=== PATIENT | female | born 1960 | race Asian ===

== ENCOUNTER 2019-05-06 09:31 | Day surgery (SDC) | payer OTHER ==
[2019-05-06] MEDS ORDERED: CEFAZOLIN 1 GM/50 ML (PMX) 50 ML IVPB (10:00)
[2019-05-06] MEDS ORDERED: SOD CHLORIDE 0.9% 1,000 ML IV (10:00)
[2019-05-06] MEDS ORDERED: PROPOFOL 20 ML (11:00)
[2019-05-06] MEDS ORDERED: LIDOCAINE 100 MG SYRINGE (11:00)
[2019-05-06] MEDS ORDERED: MIDAZOLAM 1 MG/ML 2 ML INJ (11:00)
[2019-05-06] MEDS ORDERED: FENTAnyl 50 MCG/ML VIAL (11:00)
[2019-05-06] MEDS ORDERED: ROCURONIUM 50 MG INJ (11:00)
[2019-05-06] MEDS ORDERED: ONDANSETRON 4 MG INJ (11:03)
[2019-05-06] MEDS ORDERED: PHENYLephrine 10 MG INJ (11:24)
[2019-05-06] MEDS ORDERED: CLINDAMYCIN 600 MG/D5W (PMX) 50 ML IVPB (11:24)
[2019-05-06] MEDS ORDERED: LABETALOL HCL 20MG INJ (11:56)
[2019-05-06] MEDS ORDERED: hydrALAzine 20 MG INJ IV (12:00)
[2019-05-06] MEDS ORDERED: MEPERIDINE 25 MG INJ IV (12:00)
[2019-05-06] MEDS ORDERED: OXYCODONE/ACETAMINOPHEN (5/325) TAB PO (12:00)
[2019-05-06] MEDS ORDERED: EPHEDrine 25 MG/5 ML SYG IV (12:00)
[2019-05-06] MEDS ORDERED: DIPHENHYDRAMINE 50 MG INJ IV (12:00)
[2019-05-06] MEDS ORDERED: METOCLOPRAMIDE 10 MG INJ IV (12:00)
[2019-05-06] MEDS ORDERED: LABETALOL HCL 20MG INJ IV (12:00)
[2019-05-06] MEDS: BUPIVACAINE 0.5%/EPI (SDV) 30 ML INJ (12:05)
[2019-05-06] MEDS: HYDROmorphONE 1 MG/5 ML IV SYRINGE IV ×2 (13:03→13:11)
[2019-05-06] MEDS: ONDANSETRON 4 MG INJ IV (13:04)
== END 2019-05-06 15:00 | disposition home or self-care (01) ==
LOC: SDS 09:31
DX: R22.1 Localized swelling, mass and lump, neck (principal)
CPT/HCPCS: 21552; 82962; 87102; 87116